=== PATIENT | female | born 1990 | race Two or more races ===

== ENCOUNTER 2018-07-26 05:44 | Emergency (ER) | payer BC ==
[2018-07-26] MEDS ORDERED: IPRATROPIUM/ALBUTEROL 0.5-2.5 MG/3 ML AMPUL NEB ONE ×2 (05:51→06:02)
[2018-07-26] MEDS ORDERED: METHYLPREDNISOLONE INJ 125 MG/2 ML SDV IV ONE (06:04)
[2018-07-26] MEDS: ALBUTEROL SULFATE 0.083% NEB 2.5 MG/3 ML AMPUL NEB SCH ×2 (06:11→06:39)
[2018-07-26] MEDS: MAGNESIUM SULFATE/D5W 1 GM/100 ML RTUPB IV SCH ×2 (06:16→06:39)
--- NOTE | 2018-07-26 06:33 | ER Document Report ---
Doctor's Note Notes: 07/26/18 06:30 I personally and independently obtained patient history and examined the patient and have reviewed the APC's note, reviewed, discussed and agree with their assessment and plan. HISTORY OF PRESENT ILLNESS: Patient is a 27-year-old female that presents to the emergency department for chief complaint of shortness of breath. Patient denies history of asthma but does have severe seasonal allergies and multiple sick contacts ROS: Constitutional: Negative for fever. Cardiovascular: Negative for chest pain. Respiratory: shortness of breath. Gastrointestinal: Negative for vomiting or abdominal pain Musculoskeletal: Negative for arm, leg or back pain Skin: Negative for rash. Neurological: Negative for weakness or numbness. Unless otherwise stated in this report the patient's positive and negative responses for review of systems for constitutional, eyes, ENT, cardiovascular, respiratory, gastrointestinal, neurological, genitourinary, musculoskeletal, and integumentary systems and related systems to the presenting problem are either as stated in the HPI or were not pertinent or were negative for the symptoms and/or complaints related to the presenting medical problem. PHYSICAL EXAMINATION: Vital signs reviewed, nursing noted reviewed. GENERAL: Well-appearing, obese HEAD: Atraumatic, normocephalic. EYES: Eyes appear normal, conjunctiva are normal. ENT: nares patent, oropharynx clear without exudates. Moist mucous membranes. NECK: Normal range of motion, supple without lymphadenopathy LUNGS: Tachypneic with end expiratory wheezing and diminished lung sounds bilaterally, minimal accessory muscle use HEART: Regular rate and rhythm without murmurs ABDOMEN: Soft, nontender, normoactive bowel sounds. No rebound, guarding, or rigidity. No masses appreciated. EXTREMITIES: Nontender, good range of motion, no pitting or edema. NEUROLOGICAL: No focal neurological deficits. Moves all extremities spontaneously Motor and sensory grossly intact on exam. PSYCH: Normal mood, normal affect. SKIN: Warm, Dry, normal turgor, no rashes or lesions noted on exposed MEDICAL DECISION MAKING: Patient seen and evaluated. Her work of breathing is significantly improving with aerosols. Agree with plan of care Please review detail APC documentation. *Note is created using voice recognition software and may contain spelling, syntax or grammatical errors.
[2018-07-26] MEDS ORDERED: ALBUTEROL SULFATE HFA (90 MCG/PUFF) 8 GM MDI (1 MDI/ER DISP) IH ONE (06:52)
--- NOTE | 2018-07-26 07:07 | RADIOLOGY REPORT (SQ) ---
EXAM DESCRIPTION: XR CHEST 1 VIEW COMPLETED DATE/TME: 07/26/2018 06:30 CLINICAL HISTORY: dyspnea COMPARISON: None. FINDINGS: Single frontal view of the chest. The cardiomediastinal silhouette has normal size and contour. No consolidation, pneumothorax, or pleural effusion. No displaced rib fractures identified. Leads overlie the chest. Upper abdominal soft tissues are unremarkable. IMPRESSION: 1. No acute pulmonary process identified.
--- NOTE | 2018-07-26 07:22 | ER Document Report ---
ED Respiratory Problem - General TRAVEL OUTSIDE OF THE [place] IN LAST 30 DAYS: No - General Chief Complaint: Shortness Of Breath Stated Complaint: BREATHING PROBLEMS Time Seen by Provider: 07/26/18 06:02 Notes: Patient is an otherwise healthy 27-year-old female presents to the emergency department for respiratory distress. Patient states she has an extensive history of seasonal allergies. States he typically "cannot breathe" during pollen season. Patient states she takes Anaid for seasonal allergies. Patient states this morning she feels as though she was coughing and had increased congestion and she could not catch her breath which is why she presents to the emergency room. Patient denies any oral contraceptive use, sedentary lifestyle, long train rides, plane rides, car rides. Patient denies any history of DVT or PEs. Past medical history: None Medications: Anaid Allergies: Seasonal (GENESIS CUEVAS) - Related Data Allergies/Adverse Reactions: No Known Allergies Allergy (Unverified 07/26/18 05:52) Past Medical History - General Information source: Patient, Parent - Social History Smoking Status: Never Smoker Family History: Reviewed & Not Pertinent Patient has suicidal ideation: No Patient has homicidal ideation: No Renal/ Medical History: Denies: Hx Peritoneal Dialysis Review of Systems - Review of Systems Constitutional: No symptoms reported EENT: See HPI Cardiovascular: See HPI Respiratory: See HPI Gastrointestinal: No symptoms reported Genitourinary: No symptoms reported Female Genitourinary: No symptoms reported Musculoskeletal: No symptoms reported Skin: No symptoms reported Hematologic/Lymphatic: No symptoms reported Neurological/Psychological: No symptoms reported Physical Exam - Vital signs Vitals: Temp Pulse Resp BP Pulse Ox 98.5 F 105 H 24 H 124/78 95 07/26/18 05:50 07/26/18 05:50 07/26/18 05:50 07/26/18 05:50 07/26/18 05:50 - Notes Notes: GENERAL: Alert, interacts well. Anxious, tachypneic HEAD: Normocephalic, atraumatic. EYES: Pupils equal, round, and reactive to light. Extraocular movements intact. ENT: Oral mucosa moist, tongue midline. Nares patent, swollen turbinates noted bilaterally, TM's intact, nonerythematous, nonbulging bilaterally. NECK: Full range of motion. Supple. Trachea midline. LUNGS: Inspiratory expiratory wheezes to auscultation bilaterally. HEART: Tachycardic rate and rhythm. No murmur ABDOMEN: Obese soft, non-tender. Non-distended. Bowel sounds present in all 4 quadrants. EXTREMITIES: Moves all 4 extremities spontaneously. No edema, normal radial and dorsalis pedis pulses bilaterally. No cyanosis. BACK: no cervical, thoracic, lumbar midline tenderness. No saddle anesthesia, normal distal neurovascular exam. NEUROLOGICAL: Alert and oriented x3. Normal speech. cranial nerves II through XII grossly intact. PSYCH: Normal affect, normal mood. SKIN: Warm, dry, normal turgor. No rashes or lesions noted. (GENESIS CUEVAS) Course - Re-evaluation Re-evalutation: 07/26/18 08:04 Patient states she overall feels a lot better after treatments in the emergency department. She is currently tachycardic at a rate of 128, SPO2 is 93% until patient takes multiple deep breaths and she goes up to 100%. Patient continues with scant inspiratory and expiratory wheezes throughout, much improved upon from patient's arrival to the emergency room. Patient CARE report transferred to Leslie Palomino [facility] for continued care and hopeful discharge. (GENESIS CUEVAS) 07/26/18 09:36 Patient is still tachycardic in the 120s, but she did receive DuoNeb multiple times here in the emergency department her since laceration is 96% on room air. She is not tachypneic. She is able to speak in full sentences. I discussed this case with Dr. Alicia Dong. She agrees that the patient is stable for discharge. Patient will be started on prednisone and given Flonase. She will also be sent home with an albuterol inhaler. Verbal discharge instructions were given to the patient. They verbalized understanding. They are stable for discharge. (SALVADOR PALOMINO) - Vital Signs Vital signs: Temp Pulse Resp BP Pulse Ox 98.5 F 105 H 24 H 124/78 95 07/26/18 05:50 07/26/18 05:50 07/26/18 05:50 07/26/18 05:50 07/26/18 05:50 Discharge - Discharge Clinical Impression: Asthma exacerbation Qualifiers: Asthma severity: moderate Asthma persistence: unspecified Qualified Code(s): J45.901 - Unspecified asthma with (acute) exacerbation Condition: Stable Disposition: HOME, SELF-CARE Additional Instructions: You were seen today in the emergency department for shortness of breath. You had an acute asthma exacerbation that was treated here in the emergency department. You were provided an inhaler in the emergency department. You can take 2 puffs every 4-6 hours as needed. You have been given Flonase, a medication to help with the inflammation in your nose. Use as directed. You have also been given steroids, medication to help you with your breathing. If you have worsening symptoms, difficulty breathing, or any symptoms that are worrisome to you, please return to the emergency department. Prescriptions: Fluticasone Propionate [Flonase Nasal Clark 50 Mcg/Clark 16 gm] 2 sprays NASL Q12 #1 inhaler Prednisone [Deltasone 20 mg Tablet] 3 tab PO DAILY 5 Days #15 tablet Forms: Return to School, Return to Work
[2018-07-26 09:47] VITALS: BP 135/63
== END 2018-07-26 09:47 | disposition home or self-care (01) ==
LOC: ER 05:44
DX: J45.901 Unspecified asthma with (acute) exacerbation (principal); Z79.899 Other long term (current) drug therapy; R00.0 Tachycardia, unspecified
CPT/HCPCS: 94640 ×2; 99284; 96375; 96365; 71045; J2930; J3475; J3490; J7620